=== PATIENT | male | born 1965 | race Hispanic/Latino ===

== ENCOUNTER 2020-12-03 16:08 | Emergency (ER) | payer OTHER ==
[~2020-12-03] VITALS: Ht 180.3 cm; Wt 105.2 kg
== END 2020-12-03 16:35 | disposition home or self-care (01) ==
LOC: ER 16:31
DX: M54.12 Radiculopathy, cervical region (principal); I10 Essential (primary) hypertension; E11.9 Type 2 diabetes mellitus without complications; J44.9 Chronic obstructive pulmonary disease, unspecified; E78.5 Hyperlipidemia, unspecified; M54.9 Dorsalgia, unspecified; G89.29 Other chronic pain
CPT/HCPCS: 99282